=== PATIENT | male | born 1980 | race Caucasian/White ===

== ENCOUNTER → 2025-08-04 | Outpatient (CLI) | payer BC, SELFPAY ==
[2025-08-04 08:35] LABS: Basophils # (Auto) 0.1 Thou/mm3 (0.0-0.2); Basophils % (Auto) 1 % (0-2.5); Eosinophils # (Auto) 0.3 Thou/mm3 (0.0-0.5); Eosinophils % (Auto) 4 % (0-10); Hematocrit 45.7 % (41.0-53.0); Hemoglobin 14.9 g/dL (13.5-16.0); Immature Granulocytes Auto 0.02 Thou/mm3 (0.00-0.00); Lymphocytes # (Auto) 2.7 Thou/mm3 (1.0-4.8); Lymphocytes % (Auto) 35 % (10-50); Mean Corpuscular HGB Conc 32.6 g/dl (31.0-37.0); Mean Corpuscular Hemoglobin 29.1 pg (25.0-35.0); Mean Corpuscular Volume 89 fL (80-100); Monocytes # (Auto) 0.9 Thou/mm3 (0.0-0.8); Monocytes % (Auto) 12 % (0-12); Neutrophils # (Auto) 3.7 Thou/mm3 (1.8-7.7); Neutrophils % (Auto) 48 % (37-80); Nucleated Red Blood Cell # 0.00 Thou/mm3 (0.00-0.00); Nucleated Red Blood Cell % 0 /100 WBC (0); Platelet Count 465 Thou/mm3 (140-440); RDW Standard Deviation 47.2 fL (35.1-43.9); Red Blood Count 5.12 Miln/mm3 (4.50-5.90); White Blood Count 7.6 Thou/mm3 (3.8-10.6)
[2025-08-04 08:44] LABS: Glucose Estimated Average 103 mg/dL (80-131); Hemoglobin A1C 5.2 % Hgb (4.8-6.0)
[2025-08-04 09:04] LABS: Alanine Aminotransferase 143 U/L (10-49); Albumin, Serum 4.7 gm/dL (3.5-5.0); Albumin/Globulin Ratio 2.4 (1.2-2.2); Alkaline Phosphatase 51 U/L (46-116); Anion Gap 12 (7-16); Aspartate Amino Transferase 52 U/L (0-34); BUN/Creatinine Ratio 9 Ratio (12-20); Bilirubin,Total 0.4 mg/dL (0.3-1.2); Blood Urea Nitrogen 9 mg/dL (9-23); Calcium 9.2 mg/dL (8.3-10.6); Calcium (Corrected) 9.2 mg/dL (8.5-10.1); Carbon Dioxide 27.5 mMol/L (20.0-31.0); Cardiac Risk Estimate 8.6 RATIO (4.0-6.7); Chloride 104 mMol/L (98-107); Cholesterol 207 mg/dL (132-200); Creatinine (Component) 1.0 mg/dL (0.6-1.3); Free T4 (Free Thyroxine) 1.84 ng/dL (0.89-1.76); Globulin 2.0 gm/dL (2.3-3.5); Glucose 82 mg/dL (74-106); HDL Cholesterol 24 mg/dL (40-60); LDL Cholesterol,Calculated 160 mg/dL (0-130); Osmolality,Calculated 282 (275-295); Potassium 4.2 mMol/L (3.4-5.1); Sodium 143 mMol/L (136-145); Thyroid Stimulating Hormone 0.29 uIU/mL (0.55-4.78); Total Protein 6.7 gm/dL (5.7-8.2); Triglycerides 116 mg/dL (30-150); eGFR > 60 See Note
[2025-08-04 09:05] LABS: Prostate Specific Antigen 1.36 ng/mL (0-4.00)
[2025-08-04 09:13] LABS: Syphilis Nonreactive (Nonreactive)
[2025-08-04 10:06] LABS: Hepatitis B Core Antibody IgM Non Reactive (Non React); Hepatitis B Surface Ab Reactive (Immune) (Immune); Hepatitis B Surface Antigen Non Reactive (Non React); Vitamin D 25 Hydroxy Total 58.7 ng/mL (7.3-40.2)
[2025-08-06 22:07] LABS: HCV RNA, PCR <15 NOT DETECTED IU/mL
[2025-08-08 06:56] LABS: HCV RNA, PCR Log IU <1.18 NOT DETECTED Log IU/mL; HIV Ag/Ab, 4th Gen NON-REACTIVE; Hepatitis B Core Ab,Total* NONREACTIVE
== END | disposition home or self-care (01) ==
PROVIDERS: PCP Student in an Organized Health Care Education/Training Program; Referring Provider Student in an Organized Health Care Education/Training Program; Visit Provider Student in an Organized Health Care Education/Training Program
DX: Z00.01 Encounter for general adult medical examination with abnormal findings (principal); Z11.3 Encounter for screening for infections with a predominantly sexual mode of transmission; Z11.59 Encounter for screening for other viral diseases; Z11.4 Encounter for screening for human immunodeficiency virus [HIV]; Z80.42 Family history of malignant neoplasm of prostate
CPT/HCPCS: 36415; 80053; 80061; 82306; 83036; 84153; 84439; 84443; 85025; 86704; 86705; 86706; 86780; 87340; 87389; 87491; 87522; 87591; 87661